=== PATIENT | male | born 1960 | race African-American/Black ===

== ENCOUNTER → 2020-03-17 | Outpatient (CLI) | payer OTHER ==
[~2020-03-17] MED LIST: Citalopram HBr40 MG PO; Desyrel150 MG; IBUP600 PO; LORA.5 PO; LOSA50 PO; PHENY100ER PO; Prilosec Otc20 MG PO; Prilosec20 MG PO; QUET200 PO; VITAMIN D22000 UNIT PO
[2020-03-17 19:49] LABS: Dilantin (Phenytoin), Total 8.7 ug/mL (10.0-20.0)
== END ==
LOC: LAB SHORT 15:47 → LAB 15:47
PROVIDERS: Family Medicine
DX: G40.89 Other seizures (principal); Z79.899 Other long term (current) drug therapy
CPT/HCPCS: 80185

== ENCOUNTER 2020-08-17 07:33 | Emergency (ER) | payer OTHER ==
[~2020-08-17] VITALS: Ht 172.7 cm; Wt 72.6 kg
[2020-08-17 09:16] LABS: Alanine Aminotransfer (ALT/SGP 97 U/L (12-78); Albumin/Globulin Ratio 0.8 (0.8-1.8); Alk Phos 76 U/L (50-136); Anion Gap 7 mmol/L (6-16); Aspartate Aminotrans (AST/SGOT 43 U/L (12-37); Bilirubin, Total 0.3 mg/dL (0.1-1.0); Blood Urea Nitrogen 14 mg/dL (8-24); Bun/Creatinine Ratio 19.5 (12.0-20.0); CO2, Blood 25 mmol/L (21-32); Calcium, Blood 9.3 mg/dL (8.5-10.1); Chloride, Blood 107 mmol/L (98-108); Creatinine, Blood 0.72 mg/dL (0.60-1.20); Dilantin (Phenytoin), Total 3.8 ug/mL (10.0-20.0); Globulin, Blood 4.9 g/dL (2.2-4.0); Glomerular Filtration Rate >60 (60-); Glucose, Blood 104 mg/dL (70-99); Potassium, Blood 4.3 mmol/L (3.5-5.5); Sodium, Blood 139 mmol/L (136-145); Total Protein, Blood 8.9 g/dL (6.4-8.2)
[2020-08-17 09:26] LABS: BASOPHILS ABSOLUTE AUTO 0.05 K/mm3 (0.00-0.23); BASOPHILS PERCENT AUTO 1 % (0-2); EOSINOPHILS ABSOLUTE AUTO 0.03 K/mm3 (0.00-0.68); EOSINOPHILS PERCENT AUTO 0 % (0-6); Hematocrit 37.1 % (37.0-53.0); Hemoglobin 12.7 g/dL (13.5-17.5); IMMATURE GRAN ABSOLUTE AUTO 0.04 K/mm3 (0.00-0.10); IMMATURE GRAN PERCENT AUTO 0 % (0-1); LYMPHOCYTES ABSOLUTE AUTO 1.17 K/mm3 (0.84-5.20); LYMPHOCYTES PERCENT AUTO 13 % (21-46); MONOCYTES ABSOLUTE AUTO 0.76 K/mm3 (0.16-1.47); MONOCYTES PERCENT AUTO 8 % (4-13); Mean Corpuscular HGB 29.7 pg (26.0-34.0); Mean Corpuscular HGB Conc 34.2 g/dL (31.5-36.5); Mean Corpuscular Volume 87 fL (80-100); Mean Platelet Volume 9.1 fL (9.1-12.4); NEUTROPHILS ABSOLUTE AUTO 7.04 K/mm3 (1.96-9.15); NEUTROPHILS PERCENT AUTO 77 % (41-73); Platelet Count 272 K/mm3 (150-400); RDW Coefficient Variation 13.1 % (11.7-14.2); RDW Standard Deviation 41.3 fL (35.1-46.3); Red Blood Cell Count 4.27 M/mm3 (4.30-5.90); White Blood Cell Count 9.09 K/mm3 (4.00-11.30)
== END 2020-08-17 10:45 | disposition home or self-care (01) ==
LOC: ER 07:33
PROVIDERS: Emergency Medicine
DX: G40.909 Epilepsy, unspecified, not intractable, without status epilepticus (principal); R89.2 Abnormal level of other drugs, medicaments and biological substances in specimens from other organs, systems and tissues; F03.90 Unspecified dementia, unspecified severity, without behavioral disturbance, psychotic disturbance, mood disturbance, and anxiety; F32.9 Major depressive disorder, single episode, unspecified; I10 Essential (primary) hypertension; K21.9 Gastro-esophageal reflux disease without esophagitis; Z79.899 Other long term (current) drug therapy
CPT/HCPCS: 80053; 80185; 85025; 96374; 99284-25; J1165

== ENCOUNTER → 2020-09-03 | Outpatient (CLI) | payer OTHER ==
[2020-09-03 21:00] LABS: Dilantin (Phenytoin), Total 12.6 ug/mL (10.0-20.0)
== END | disposition home or self-care (01) ==
LOC: LAB SHORT 18:54 → LAB 18:54
PROVIDERS: Family Medicine
DX: Z51.81 Encounter for therapeutic drug level monitoring (principal); R56.9 Unspecified convulsions; Z79.899 Other long term (current) drug therapy
CPT/HCPCS: 80185

== ENCOUNTER 2021-02-18 15:28 | Emergency (ER) | payer OTHER ==
[~2021-02-18] VITALS: Ht 170.2 cm; Wt 68.0 kg
[2021-02-18 17:46] LABS: BASOPHILS ABSOLUTE AUTO 0.04 K/mm3 (0.00-0.23); BASOPHILS PERCENT AUTO 1 % (0-2); EOSINOPHILS ABSOLUTE AUTO 0.17 K/mm3 (0.00-0.68); EOSINOPHILS PERCENT AUTO 3 % (0-6); Hematocrit 34.7 % (37.0-53.0); Hemoglobin 12.1 g/dL (13.5-17.5); IMMATURE GRAN ABSOLUTE AUTO 0.03 K/mm3 (0.00-0.10); IMMATURE GRAN PERCENT AUTO 0 % (0-1); LYMPHOCYTES ABSOLUTE AUTO 2.05 K/mm3 (0.84-5.20); LYMPHOCYTES PERCENT AUTO 30 % (21-46); MONOCYTES ABSOLUTE AUTO 0.76 K/mm3 (0.16-1.47); MONOCYTES PERCENT AUTO 11 % (4-13); Mean Corpuscular HGB 29.5 pg (26.0-34.0); Mean Corpuscular HGB Conc 34.9 g/dL (31.5-36.5); Mean Corpuscular Volume 85 fL (80-100); Mean Platelet Volume 8.5 fL (9.1-12.4); NEUTROPHILS ABSOLUTE AUTO 3.87 K/mm3 (1.96-9.15); NEUTROPHILS PERCENT AUTO 56 % (41-73); Platelet Count 314 K/mm3 (150-400); RDW Coefficient Variation 12.8 % (11.7-14.2); RDW Standard Deviation 39.6 fL (35.1-46.3); White Blood Cell Count 6.92 K/mm3 (4.00-11.30)
[2021-02-18] MEDS ORDERED: Acetaminophen325 M1 PO (17:46)
[2021-02-18] MEDS ORDERED: Bisoprolol Fuma10 MG PR (17:47)
[2021-02-18] MEDS ORDERED: TUMS500 MG PO (17:48)
[2021-02-18] MEDS ORDERED: LOPE2C PO (17:50)
[2021-02-18] MEDS ORDERED: LORA.5 PO (17:50)
[2021-02-18] MEDS ORDERED: DULCOLAX400 MG/5 M PO (17:51)
[2021-02-18 18:08] LABS: Alanine Aminotransfer (ALT/SGP 53 U/L (12-78); Albumin, Blood 3.6 g/dL (3.4-5.0); Albumin/Globulin Ratio 0.7 (0.8-1.8); Alk Phos 95 U/L (50-136); Anion Gap 4 mmol/L (6-16); Aspartate Aminotrans (AST/SGOT 29 U/L (12-37); Bilirubin, Total 0.2 mg/dL (0.1-1.0); Blood Urea Nitrogen 10 mg/dL (8-24); Bun/Creatinine Ratio 15.8 (12.0-20.0); CO2, Blood 28 mmol/L (21-32); Calcium, Blood 8.7 mg/dL (8.5-10.1); Chloride, Blood 96 mmol/L (98-108); Creatinine, Blood 0.63 mg/dL (0.60-1.20); Globulin, Blood 5.1 g/dL (2.2-4.0); Glomerular Filtration Rate >60 (60-); Glucose, Blood 87 mg/dL (70-99); Sodium, Blood 128 mmol/L (136-145); Total Protein, Blood 8.7 g/dL (6.4-8.2); Troponin I <0.015 ng/mL (0.000-0.040)
[2021-02-18 18:34] LABS: Dilantin (Phenytoin), Total 38.6 ug/mL (10.0-20.0)
[2021-04-01] MEDS ORDERED: CITA20 PO (14:14)
[2021-04-01] MEDS ORDERED: HYDCHL25 PO (14:15)
[2021-04-01] MEDS ORDERED: GUAI200 PO (14:15)
[2021-04-01] MEDS ORDERED: OMEP20ER PO (14:16)
[2021-04-01] MEDS ORDERED: LOSA50 PO (14:16)
[2021-04-01] MEDS ORDERED: LORA10ER PO (14:16)
[2021-04-01] MEDS ORDERED: IBUP600 PO (14:16)
[2021-04-01] MEDS ORDERED: PHENYTOIN50 MG PO (14:17)
[2021-04-01] MEDS ORDERED: Seroquel Xr50 MG PO (14:17)
[2021-04-01] MEDS ORDERED: TRAZ100 PO (14:19)
[2021-04-01] MEDS ORDERED: VITAMIN D2 PO (14:19)
[2021-04-01] MEDS ORDERED: TUMS500 MG PO (14:19)
[2021-04-01] MEDS ORDERED: LORA.5 PO (14:20)
[2021-04-01] MEDS ORDERED: LOPE2C PO (14:20)
[2021-04-01] MEDS ORDERED: FUNGOID-D113 G1 TOP (14:21)
[2021-04-01] MEDS ORDERED: PHENY100ER PO (14:21)
== END 2021-02-18 20:33 | disposition home or self-care (01) ==
LOC: ER 15:28
PROVIDERS: Physician Assistant
DX: R22.1 Localized swelling, mass and lump, neck (principal); R53.1 Weakness; I10 Essential (primary) hypertension; G40.909 Epilepsy, unspecified, not intractable, without status epilepticus; Z79.899 Other long term (current) drug therapy; T42.0X5A Adverse effect of hydantoin derivatives, initial encounter
CPT/HCPCS: 70491; 71045; 80053; 80185; 84484; 85025; 93005; 93010; 99284-25; J7030; Q9967

== ENCOUNTER 2021-04-06 10:05 | Day surgery (SDC) | payer OTHER ==
[~2021-04-06] VITALS: Ht 172.7 cm; Wt 73.6 kg
[~2021-04-06 10:05] MED LIST changes: +Acetaminophen325 M1 PO; +Bisoprolol Fuma10 MG PR; +CITA20 PO; +DULCOLAX400 MG/5 M PO; +FUNGOID-D113 G1 TOP; +GUAI200 PO; +HYDCHL25 PO; +LOPE2C PO; +LORA10ER PO; +OMEP20ER PO; +PHENYTOIN50 MG PO; +Seroquel Xr50 MG PO; +TRAZ100 PO; +TUMS500 MG PO; +VITAMIN D2 PO
--- NOTE | 2021-04-06 14:30 | NUR ---
Patient up to Ambulate independently. Gait steady. Dressing to procedure site clean, dry, intact with no visible drainage, swelling, erythema or bruising noted. Discharge instructions reviewed with patient. Patient verbalizes understanding. Copy given to patient to take home.
--- NOTE | 2021-04-06 14:45 | NUR ---
Discharged via wheelchair to private car for ride home.
--- NOTE | 2021-04-06 14:59 | NUR ---
WENT OVER DISCHARGE INSTRUCTIONS AND MEDICATIONS WITH PT'S [employer]ENT/RN WHO TAKES CARE OF HIM
== END 2021-04-06 14:45 | disposition home or self-care (01) ==
LOC: ORSCMMR 10:05 → ORD 11:30 → ORSCMMR 11:30
PROVIDERS: Surgery
PROC: 05HM33Z Insertion of Infusion Device into Right Internal Jugular Vein, Percutaneous Approach (ICD-10-PCS; principal; 2021-04-06 11:30)
PROC: B5131ZA Fluoroscopy of Right Jugular Veins using Low Osmolar Contrast, Guidance (ICD-10-PCS; principal; 2021-04-06 11:30)
DX: C13.9 Malignant neoplasm of hypopharynx, unspecified (principal); I10 Essential (primary) hypertension; F03.90 Unspecified dementia, unspecified severity, without behavioral disturbance, psychotic disturbance, mood disturbance, and anxiety; Z79.899 Other long term (current) drug therapy
CPT/HCPCS: 77001; A9270; C1788; J0690; J1100; J1642; J2250; J2405; J2704; J3010; J7120